=== PATIENT | male | born 1975 | race Caucasian/White ===

== ENCOUNTER 2018-12-14 12:44 | Emergency (ER) | payer SELFPAY ==
[~2018-12-14 12:44] MED LIST: Sodium Chloride Irrig Solution 250 ML BOT ONE
[2018-12-14] MEDS ORDERED: HYDROmorphone 0.5 MG/0.5 ML SYRINGE ONE (14:07)
[2018-12-14] MEDS ORDERED: Silver Sulfadiazine 1% Cream 50 GM TUBE ONE (14:07)
== END 2018-12-14 14:45 | disposition home or self-care (01) ==
LOC: MADERS 12:44
DX: T25.222A Burn of second degree of left foot, initial encounter (principal); T23.202A Burn of second degree of left hand, unspecified site, initial encounter; T31.0 Burns involving less than 10% of body surface; F17.210 Nicotine dependence, cigarettes, uncomplicated; X19.XXXA Contact with other heat and hot substances, initial encounter
CPT/HCPCS: 16020; 96372; J1170